=== PATIENT | female | born 1945 ===

== ENCOUNTER → 2016-07-14 | Day surgery (SDC) | payer OTHER ==
[2016-07-13 12:25] VITALS: BMI 34.0
[~2016-07-14] MED LIST: LIDOCAINE HCL 1%, 10 MG/ML (20ML VIAL) IJ ONE; LIDOCAINE HCL 1%, 10 MG/ML (20ML VIAL) ONE; MIDAZOLAM HCL 2 MG/2 ML SINGLE DOSE VIAL ONE; ONDANSETRON 4 MG/2 ML VIAL IVPUSH PRN; PROMETHAZINE HCL 25 MG/1 ML VIAL IVPUSH PRN; PROPOFOL 20 ML ONE; ceFAZolin SODIUM 1 GM VIAL IVPB ONE; oxyCODONE HCL 5 MG TABLET PO PRN
[2016-07-14 08:34] LABS: URINE APPEARANCE CLEAR; URINE BILIRUBIN NEGATIVE (NEGATIVE); URINE COLOR LTYELLOW; URINE GLUCOSE (UA) NEGATIVE (NEGATIVE); URINE KETONE NEGATIVE (NEGATIVE); URINE LEUK ESTERASE NEGATIVE (NEGATIVE); URINE NITRITE NEGATIVE (NEGATIVE); URINE PROTEIN NEGATIVE (NEGATIVE); URINE UROBILINOGEN NEGATIVE E.U./dl (0.2-1.0)
[2016-07-14 08:45] LABS: URINE BLOOD 1+ (NEGATIVE)
[2016-07-14 08:50] LABS: URINE MUCUS RARE; URINE RBC 1 /hpf (0-3); URINE WBC 1 /hpf (3-5)
[2016-07-14 15:35] VITALS: BP 148/85; PULSE 85; TEMP 98
--- NOTE | 2016-07-15 21:32 | OP ---
DATE OF OPERATION: 07/14/2016 PREOPERATIVE DIAGNOSIS: Right breast intraductal papilloma. POSTOPERATIVE DIAGNOSIS: Right breast intraductal papilloma. PROCEDURE: Right breast wire localized excision of intraductal papilloma. SURGEON: Muna Celis MD ANESTHESIA: Local and IV sedation, Dr. Fink. ESTIMATED BLOOD LOSS: Minimal. COMPLICATIONS: None. This is a sterile procedure. INDICATIONS: The patient had a needle biopsy under ultrasound guidance then pathology showed an intraductal papilloma. My recommendation was an excision. The procedure was discussed with all of the questions answered. PROCEDURE IN DETAIL: The patient was brought to [facility] and taken to breast imaging where a wire was used to localize the clip in the inner right breast. She was then brought up to the operating room. After IV sedation and IV antibiotics, the right breast was prepped and draped in the usual sterile fashion. The area in the inner right breast was anesthetized with 1% lidocaine without epinephrine. A periareolar incision was made in the inner right breast, and a wire was used to as a guide to get down to the area. This was excised en bloc and sent for a special radiograph. Hemostasis assured with electrocautery. A special radiograph showed the clip and the wire to be intact on the specimen. Once hemostasis was assured, the parenchyma was approximated with interrupted 2-0 Vicryl. Skin was approximated with interrupted 3-0 Vicryl and running 4-0 Prolene. A sterile dressing with Tegaderm and 4 X 4s was applied. She tolerated the procedure well and left the operating room in good condition. Lito [id number]
--- NOTE | 2016-07-17 12:38 | PATH ---
Surgical Pathology Report Patient Name: CHRISTIANE COLEMAN [facility]. Rec. #: [id number] /Age/Gender: 1945 (Age: 71) / F Account: [id number] Location: AMBULATORY SURG Taken: 07/14/2016 Received: 07/14/2016 Reported: 07/17/2016 Physicians: Muna Celis M.D. Specimen(s) Received RIGHT BREAST EXCISIONAL BIOPSY Clinical History US findings: probably benign Final Diagnosis BREAST, RIGHT, EXCISIONAL BIOPSY: INTRADUCTAL PAPILLOMA, ASSOCIATED WITH PRIOR BIOPSY SITE CHANGES, APPEARS COMPLETELY EXCISED. BACKGROUND OF FIBROCYSTIC CHANGE WITH USUAL DUCTAL HYPERPLASIA, FOCAL ADENOSIS, COLUMNAR CELL CHANGE, STROMAL FIBROSIS AND ASSOCIATED MICROCALCIFICATIONS. Electronically Signed Topher Melendez M.D. Gross Description Received fresh, on an AccuGrid, labeled "right breast excisional biopsy" is a 5.0 x 2.8 x 1.0 cm irregular, unoriented portion of fibroadipose tissue with a needle localization wire present. There is no skin or nipple present. The specimen is inked green and serially sectioned. Sectioning reveals a blue metallic biopsy clip surrounded by firm fibrous tissue. No definitive masses are identified. The specimen is entirely and sequentially submitted in 8 cassettes with the area of the metallic clip in cassettes 4-5. Time to fixation: not given Total formalin fixation time: approximately 6 hours 07/14/201607/14/2016
== END | disposition home or self-care (01) ==
LOC: JASUSAT 08:05
PROVIDERS: ATTEND Surgery
PROC: 0HBT0ZX Excision of Right Breast, Open Approach, Diagnostic (ICD-10-PCS; principal; 2016-07-14 11:00)
DX: D24.1 Benign neoplasm of right breast (principal)
CPT/HCPCS: 19281; 81003; 81015; 88307-TC; 94760